=== PATIENT | male | born 1980 | race Caucasian/White ===

== ENCOUNTER 2016-09-05 18:45 | Emergency (ER) | payer SELFPAY ==
--- NOTE | ~2016-09-05 | US115 ---
[facility] A Service of [facility] RADIOLOGY TEXT RESULTS PATIENT: LA ARNETT LOCATION: SED : [birth year] UNIT #: [id number] AGE: [address]: Marilu Levin MD SEX: M ORDER DR: [id number] [address] [address] [id number] E MR#: [id number] Acc #: [id number] NAME: LA ARNETT : 1980 SEX: M STUDY DATE/TIME: 09/05/2016 20:19 UNIT: SED ROOM: STUDY DESCRIPTION: US Scrotum and Contents Attending Physician: Marilu Levin M.D. Ordering Physician: Marilu Levin M.D. Primary Care Physician: Anabel Brown M.D. MEDICAL IMAGING REPORT This report is preliminary unless electronic signature is present. EXAM Scrotal ultrasound HISTORY Right groin and testicular pain x5 days, began while gardening last Thursday FINDINGS Real-time examination was performed to include Doppler imaging. Within the right testicle, there is a 13.8 x 13.9 x 11.6 mm hypoechoic mass which shows some mild peripheral hypervascularity. Imaging features are nonspecific but raises concern for intratesticular neoplasm such as seminoma. Further urologic evaluation is recommended. Hematoma is a possibility, but the imaging features are not highly suggestive of hematoma. Overall testicular size is normal. The left testicle appears normal. No significant hydrocele. Epididymis appears normal. Probable mild right-sided varicocele. IMPRESSION 1. Approximately 14 mm heterogeneous intratesticular mass within the right testicle with apparent compressed testicular tissues surrounding the lesion and mild peripheral hyperemia. 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 Potentially this could represent a hematoma, but the imaging features are less suggestive of a hematoma. 2. Suspect a small right sided varicocele. Dictated by.Yan. Sung Green M.D. THIS IS AN ELECTRONICALLY VERIFIED REPORT [facility] A Service of [facility] RADIOLOGY TEXT RESULTS PATIENT: LA ARNETT [place] [facility] [place] [birth year] [place]IT #: [id number] AGE: [address]: Marilu Levin MD SEX: M ORDER DR: Sung Green M.D. at 09/08/2016 6:07 AM Bird TD: 09/06/2016 00:27 JOB #: [id number] MEDICAL IMAGING REPORT Page 1 of 1
--- NOTE | ~2016-09-05 | CT4 ---
[facility] A Service of [facility] RADIOLOGY TEXT RESULTS PATIENT: LA ARNETT LOCATION: SED : [birth year] UNIT #: [id number] AGE: [address]: Marilu Levin MD SEX: M ORDER DR: [id number] [place] [id number] E MR#: [id number] Acc #: [id number] NAME: LA ARNETT : 1980 SEX: M STUDY DATE/TIME: 09/05/2016 20:38 UNIT: SED ROOM: STUDY DESCRIPTION: CT Abd and Pelv Wo Cont Attending Physician: Marilu Levin M.D. Ordering Physician: Marilu Levin M.D. Primary Care Physician: Anabel Brown M.D. MEDICAL IMAGING REPORT This report is preliminary unless electronic signature is present. EXAM CT abdomen and pelvis without contrast HISTORY Right groin pain since Thursday 4 days ago. Thinks he may have twisted wrong. TECHNIQUE Axial images performed through the abdomen and pelvis without contrast. Multiplanar reconstructed images reviewed at a workstation. This CT exam was performed with one or more of the following radiation dose reduction techniques: automatic control, adjustment of mA and/or kV according to patient size, and iterative reconstruction. FINDINGS ABDOMEN: Lung bases unremarkable. Liver, spleen, gallbladder, pancreas kidneys and adrenal glands unremarkable. No free air or free fluid. The visualized GI tract unremarkable. PELVIS: bladder is decompressed. The osseous structures and soft tissues appear normal. IMPRESSION Negative CT abdomen and pelvis without contrast. Please note there is a small amount of intrascrotal fact bilaterally with some induration of the right scrotal soft tissues. Dictated by... Sung Green M.D. THIS IS AN ELECTRONICALLY VERIFIED REPORT Sung Green M.D. at 09/08/2016 6:07 AM JMS/rnr [facility] A Service of [facility] RADIOLOGY TEXT RESULTS PATIENT: LA ARNETT LOCATION: SED : [birth year] UNIT #: [id number] AGE: [address]: Marilu Levin MD SEX: M ORDER DR: TD: 09/06/2016 00:32 JOB #: [id number] MEDICAL IMAGING REPORT Page 1 of 1
[2016-09-05] MEDS ORDERED: NO MEDICATIONS (18:49)
[2016-09-05 19:48] LABS: BASOPHIL# 0.1 X10e3 (0-0.3); BASOPHIL% 0.9 % (0-2.5); DIFF IND NO; EOSINOPHIL# 0.1 X10e3 (0-0.7); EOSINOPHIL% 0.7 % (0.0-7.0); LYMPHOCYTE# 2.3 X10e3 (1.0-3.5); LYMPHOCYTE% 19.9 % (17.0-45.0); MEAN CELL VOLUME 86.5 FL (83-96); MEAN CORPUSCULAR HEMOGLOBIN 30.1 PG (28-34); MEAN CORPUSCULAR HGB CONC 34.9 g/dL (30-36); MEAN PLATELET VOLUME 8.3 FL (6.5-11.5); MONOCYTE# 0.6 X10e3 (0-1.0); MONOCYTE% 5.5 % (3.0-12.0); NEUTROPHIL# 8.4 X10e3 (1.5-7.1); PLATELET COUNT 230 X10e3 (140-420); RED BLOOD COUNT 5.32 X10e (3.90-5.60); RED CELL DISTRIBUTION WIDTH 13.8 % (11.0-15.5); WHITE BLOOD COUNT 11.5 X10e3 (4.0-10.5)
[2016-09-05 20:13] LABS: ALBUMIN SERUM 3.9 g/dL (3.5-5.0); BILIRUBIN, DIRECT 0.1 mg/dL (0.0-0.2); BILIRUBIN,INDIRECT 0.3 mg/dL (0.0-0.9); BILIRUBIN,TOTAL 0.4 mg/dL (0.2-2.0); BUN/CREATININE RATIO 14.44; CALCIUM SERUM 8.7 mg/dL (8.4-10.2); CREATININE SERUM 0.9 mg/dL (0.6-1.4); POTASSIUM 3.8 mmol/L (3.5-5.1); PROTEIN TOTAL SERUM 7.7 g/dL (6.0-8.3)
[2016-09-05 20:33] LABS: URINE SOURCE CLEAN CATCH
[2016-09-05 20:37] LABS: URINE APPEARANCE CLEAR; URINE BILIRUBIN NEG (NEG); URINE BLOOD NEG (NEG); URINE COLOR DK YELLOW; URINE GLUCOSE NEG (NORM); URINE KETONE TRACE (NEG); URINE LEUKOCYTE ESTERASE NEG (NEG); URINE NITRATE NEG (NEG); URINE PH 5.5 (5-8); URINE PROTEIN TRACE (NEG); URINE SPECIFIC GRAVITY 1.025 (1.003-1.035)
[2016-09-05 20:44] LABS: CULTURE INDICATED? NO; MICRO INDICATED? YES; URINE BACTERIA NEG (NEG); URINE RBC 0-2 /[HPF] (0-2)
[2016-09-05 20:45] LABS: URINE HYALINE CAST 0-2 /[HPF]; URINE MUCUS PRESENT; URINE SQUAMOUS EPITHELIAL CELL OCCAS /[HPF]
[2016-09-05 20:46] LABS: AMPHETAMINE NEG (NEG); BARBITURATES NEG (NEG); BENZODIAZEPINES NEG (NEG); COCAINE NEG (NEG); MARIJUANA NEG (NEG); OPIATES POS (NEG); TRICYCLIC ANTIDEPRESSANTS NEG (NEG); U METHADONE NEG (NEG)
[2016-09-09 17:22] LABS: CHLAMYDIA TRACH Not Detected (Not Detected); N GONOR Not Detected (Not Detected)
== END 2016-09-05 21:37 | disposition home or self-care (01) ==
LOC: SED 18:45
PROVIDERS: Student in an Organized Health Care Education/Training Program
DX: R10.31 Right lower quadrant pain (principal); F17.200 Nicotine dependence, unspecified, uncomplicated
CPT/HCPCS: 36415; 74176; 76870; 80048; 80076; 80307; 81003; 85025; 87491; 87591; 93976; 99284

== ENCOUNTER 2016-10-09 23:12 | Emergency (ER) | payer SELFPAY ==
[~2016-10-09 23:12] MED LIST: NO MEDICATIONS
== END 2016-10-10 00:18 | disposition home or self-care (01) ==
LOC: SED 23:12
DX: J32.9 Chronic sinusitis, unspecified (principal)
CPT/HCPCS: 99283